=== PATIENT | female | born 1985 | race Two or more races ===

== ENCOUNTER → 2017-03-14 | Outpatient (CLI) | payer BC | END | disposition home or self-care (01) | LOC: LAB 08:09 | DX: N91.1 Secondary amenorrhea (principal) ==

== ENCOUNTER → 2017-03-25 | Outpatient (CLI) | payer BC | END | disposition home or self-care (01) | LOC: LAB 08:41 | DX: Z34.83 Encounter for supervision of other normal pregnancy, third trimester (principal) ==

== ENCOUNTER 2017-06-23 08:26 | Outpatient (CLI) | payer BC | END 2017-06-23 08:42 | disposition home or self-care (01) | LOC: LAB 08:26 | DX: Z34.82 Encounter for supervision of other normal pregnancy, second trimester (principal) ==

== ENCOUNTER → 2017-07-31 | Outpatient (CLI) | payer BC | END | disposition home or self-care (01) | LOC: LAB 09:26 | DX: Z34.92 Encounter for supervision of normal pregnancy, unspecified, second trimester (principal) ==

== ENCOUNTER 2017-10-20 10:56 | Inpatient (IN) | payer BC ==
[~2017-10-20] VITALS: Ht 167.6 cm; Wt 2.3 kg
[2017-10-20] MEDS ORDERED: SYNTHROID75 MCG PO (12:08)
[2017-10-20] MEDS ORDERED: PRENATAL 19 TA1 EAC1 PO (12:08)
== END 2017-10-23 11:22 | DRG 766 ==
LOC: LDR 10:56 → OB/GYN 19:17
PROVIDERS: Obstetrics & Gynecology
PROC: 4A1HXCZ Monitoring of Products of Conception, Cardiac Rate, External Approach (ICD-10-PCS; 2017-10-20)
PROC: 10D00Z1 Extraction of Products of Conception, Low, Open Approach (ICD-10-PCS; principal; 2017-10-20 17:00)
DX: O60.14X0 Preterm labor third trimester with preterm delivery third trimester, not applicable or unspecified (principal); O14.14 Severe pre-eclampsia complicating childbirth; Z3A.36 36 weeks gestation of pregnancy; Z37.0 Single live birth

== ENCOUNTER 2017-10-24 20:18 | Emergency (ER) | payer BC ==
[~2017-10-24] VITALS: Ht 167.6 cm; Wt 99.8 kg
[~2017-10-24 20:18] MED LIST: PRENATAL 19 TA1 EAC1 PO; SYNTHROID75 MCG PO
== END 2017-10-24 22:42 | disposition home or self-care (01) ==
LOC: ER 20:18
DX: I10 Essential (primary) hypertension (principal); F41.8 Other specified anxiety disorders

== ENCOUNTER 2019-04-15 10:03 | Outpatient (CLI) | payer BC | END 2019-04-15 15:00 | disposition home or self-care (01) | LOC: LAB 10:03 | DX: N91.1 Secondary amenorrhea (principal) ==

== ENCOUNTER 2019-10-19 12:39 | Outpatient (CLI) | payer BC | END 2019-10-19 12:48 | disposition home or self-care (01) | LOC: RAD 12:39 | PROVIDERS: ATTEND Orthopaedic Surgery | DX: M54.2 Cervicalgia (principal) ==

== ENCOUNTER 2020-05-05 07:18 | Outpatient (CLI) | payer BC | END 2020-05-05 07:24 | disposition home or self-care (01) | LOC: LAB 07:18 | PROVIDERS: ATTEND Obstetrics & Gynecology | DX: N91.1 Secondary amenorrhea (principal) ==